=== PATIENT | female | born 1970 | race Caucasian/White ===

== ENCOUNTER 2022-10-16 12:49 | Outpatient (CLI) | payer OTHER, MEDICARE, SELFPAY ==
--- NOTE | ~2022-10-16 | CT_ITS ---
EXAMINATION: CT cervical spine wo con DATE: 10/16/2022 13:46 INDICATION: Cervical instability. Hardware failure. TECHNIQUE: Computed tomography (CT) of the cervical spine was performed without intravenous contrast. Automated exposure control and iterative reconstruction technique were employed. The dose-length pro duct was 438.75 mGy-cm. COMPARISON: None FINDINGS: There is an old healed fracture of the base of the dens with malunion. There is fusion of t he C1 and C2 lateral masses. There are changes of decompression of the posterior C1 ring. There are c hanges of posterior fusion procedure from the skull base to C3. There are changes of anterior fusion procedures at C5-C6 and C6-C7. The screws in C7 are broken. There is kyphosis of lower cervical spine . Vertebral body heights are normal. No acute fracture. Intervertebral disc heights are normal. The f ollowing disc levels are specifically discussed: C2-C3: There is no uncovertebral joint hypertrophy. There is no facet joint hypertrophy. There is no neural foraminal stenosis. There is no central canal stenosis. C3-C4: There is moderate bilateral uncovertebral joint osteoarthritis. There is mild bilateral facet joint osteoarthritis. There is mild bilateral neural foraminal stenosis. There is no central canal st enosis. C4-C5: There is mild right and severe left uncovertebral joint osteoarthritis. There is severe bilate ral facet joint osteoarthritis. There is mild right and moderate left neural foraminal stenosis. Ther e is mild central canal stenosis. C5-C6: There is severe bilateral uncovertebral joint osteoarthritis. There is severe bilateral facet joint osteoarthritis. There is moderate bilateral neural foraminal stenosis. There is mild central ca nal stenosis. C6-C7: There is mild bilateral uncovertebral joint hypertrophy. There is severe bilateral facet joint osteoarthritis. There is mild right and moderate left neural foraminal stenosis. There is mild centr al canal stenosis. C7-T1: There is mild bilateral uncovertebral joint osteoarthritis. There is severe bilateral facet kayla int osteoarthritis. There is mild right and moderate left neural foraminal stenosis. There is no cent ral canal stenosis. IMPRESSION: 1. Posterior fusion procedure from the skull base to C3. 2. Anterior fusion procedure from C5 to C7 with fracture of the C7 screws. 3. Moderate cervical spondylosis. Reviewed, dictated and finalized at location E.
== END 2022-10-16 12:50 | disposition home or self-care (01) ==
DX: M53.2X2 Spinal instabilities, cervical region (principal); T84.216A Breakdown (mechanical) of internal fixation device of vertebrae, initial encounter; Z98.1 Arthrodesis status; M43.02 Spondylolysis, cervical region
CPT/HCPCS: 72125